=== PATIENT | male | born 1960 | race Asian ===

== ENCOUNTER 2018-02-17 10:21 | Emergency (ER) | payer SELFPAY ==
[~2018-02-17] VITALS: Ht 167.6 cm; Wt 99.8 kg
[2018-02-17 10:24] VITALS: Ht 167.6 cm; Wt 99.8 kg
[2018-02-17 12:45] VITALS: BP 146/82
== END 2018-02-17 12:45 | disposition home or self-care (01) ==
LOC: ED 10:21
DX: S01.01XA Laceration without foreign body of scalp, initial encounter (principal); E11.9 Type 2 diabetes mellitus without complications; W22.8XXA Striking against or struck by other objects, initial encounter; Y93.89 Activity, other specified; Y92.89 Other specified places as the place of occurrence of the external cause; Y99.8 Other external cause status
CPT/HCPCS: 90715; J2001; J3490